=== PATIENT | male | born 1940 | race Caucasian/White ===

== ENCOUNTER 2018-05-12 13:44 | Inpatient (IN) | payer OTHER ==
[~2018-05-12] VITALS: Ht 180.3 cm; Wt 100.8 kg
[2018-05-12 13:45] VITALS: BP 145/92
--- NOTE | 2018-05-12 14:25 | NUR ---
PT DAUGHTER CAME OUT WONDERING HOW LONG UNTIL A DR WILL BE IN TO SEE THE PT. DAUGHTER EXPLAINED THAT PT IS IN A LOT OF PAIN AND IS VERY UNCOMFORTABLE. EXPLAINED TO DAUGHTER THAT DR WILL BE IN SOON POSSIBLE. NOTIFIED DR. SANTIZO ABOUT FAMILY'S ANXIOUSNESS TO SEE PROVIDER.
[2018-05-12 15:51] LABS: BASOPHILS 0.6 % (0.0-2.0); EOSINOPHILS 0.5 % (0.0-3.0); HEMATOCRIT 40.2 % (42.0-52.0); HEMOGLOBIN 13.4 gm/dL (14.0-18.0); LYMPHOCYTES 16.8 % (24.0-44.0); MCH 31.5 pg (26.0-34.0); MCHC 33.4 g/dL (28.0-37.0); MCV 94.4 fL (80.0-100.0); MONOCYTES 6.7 % (1.0-8.0); PLATELET COUNT 194 thou/uL (150-400); POLYS 75.4 % (36.0-66.0); RBC 4.26 mil/uL (4.50-6.00); RDW 14.4 % (10.5-14.5); WBC 9.3 thou/uL (4.0-11.0)
[2018-05-12 15:55] LABS: CALCIUM 9.5 mg/dL (8.5-10.1); CREATININE 1.2 mg/dL (0.7-1.3); POTASSIUM 4.2 mmol/L (3.5-5.1)
[2018-05-12] MEDS ORDERED: PROSCAR 5MG TABL5 MG PO (18:46)
[2018-05-12] MEDS ORDERED: GLUCOPHAGE850 MG PO (18:46)
[2018-05-12] MEDS ORDERED: ATORVASTATIN CA80 MG PO (18:46)
[2018-05-12] MEDS ORDERED: SYNTHROID50 MCG PO (18:47)
[2018-05-12] MEDS ORDERED: COZAAR 50 MG TA50 MG PO (18:47)
[2018-05-12] MEDS ORDERED: TRAMADOL 50 MG50 MG PO (18:47)
[2018-05-12] MEDS ORDERED: LOPRESSOR100 M1 PO (18:47)
[2018-05-12] MEDS ORDERED: GABAPENTIN600 M1 PO (18:48)
[2018-05-12] MEDS ORDERED: ECOTRIN325 MG PO (18:49)
[2018-05-12] MEDS ORDERED: VITAMIN C WIT1000 MG PO (18:50)
[2018-05-12] MEDS ORDERED: HYDROCODON-ACE1 EAC7 PO (18:51)
[2018-05-12 19:27] VITALS: BP 132/74
--- NOTE | 2018-05-12 19:34 | NUR ---
CALLED PT'S FAMILY MEMBER, OLVIN- TO GIVE ROOM NUMBER- [phone]
[2018-05-12 19:36] VITALS: BP 121/64
[2018-05-12 20:22] VITALS: BP 132/73
[2018-05-13] MEDS ORDERED: BISACODYL SUPP10 MG RECTAL (00:34)
[2018-05-13] MEDS ORDERED: COLACE100 MG PO (00:35)
[2018-05-13] MEDS ORDERED: TYLENOL EXTRA500 MG PO (00:35)
[2018-05-13] MEDS ORDERED: ROBITUSSIN100 MG/53 (00:37)
[2018-05-13] MEDS ORDERED: SELSUN BLUE207 M2 TOP (00:39)
[2018-05-13 04:45] VITALS: BP 154/86
[2018-05-13 06:07] LABS: HEMATOCRIT 37.4 % (42.0-52.0); HEMOGLOBIN 12.4 gm/dL (14.0-18.0); MCH 31.5 pg (26.0-34.0); MCHC 33.1 g/dL (28.0-37.0); RBC 3.94 mil/uL (4.50-6.00); RDW 14.6 % (10.5-14.5); WBC 5.9 thou/uL (4.0-11.0)
[2018-05-13 06:18] LABS: CALCIUM 8.7 mg/dL (8.5-10.1); CREATININE 1.2 mg/dL (0.7-1.3)
[2018-05-13] MEDS ORDERED: WELLBUTRIN SR150 MG PO (07:31)
[2018-05-13] MEDS ORDERED: WELLBUTRIN XL150 MG PO (07:32)
--- NOTE | 2018-05-13 07:41 | NUR ---
ADMITTED FROM ER, TRANSPORTED VIA CART. STEADY GAIT, UP AD JENA IN ROOM. ENCOURAGING AMBULATION TO ASSIST WITH RESOLVING ILEUS. ALERT, ORIENTED X 4. HEMATURIA DUE TO PREVIOUS KIDNEY STONE REMOVAL, STENT PLACEMENT. DENIED NEED FOR NAUSEA, PAIN MEDS.
[2018-05-13 08:36] VITALS: BP 166/85
--- NOTE | 2018-05-13 10:29 | NUR ---
Nutrition: assess d/t consult for weight loss. Pt admitted for ileus and abdominal pain. Hx of kidney stones, DM, and HTN. Pt states over the past several months he has lost ~25 lbs. This was desired wt loss. Pt states he is very happy with progess and would like to lose a little more. Currently on clear liquid diet, tolerating well. Has been passing gas, but no BM. Will follow for timely diet advancement. Otherwise, consider low risk.
--- NOTE | 2018-05-13 13:08 | NUR ---
Assessment completed.vss.pt in bed alert and oriented x4.Ambulated in hallways with therapist.Good endurance noted.Dr Wihte here,order noted.Pt kept npo till passing gas and have bm.No verbal c/o at present.Will continue to monitor.
--- NOTE | 2018-05-13 16:08 | NUR ---
ASSESSMENT-PT LIVES AT HOME WITH HIS DTR AND JEFFREY. PT IS INDEPENDENT OF ADLS AND AMBULATION. PT DRIVES AND HAS NOT HAD ANY HH SERVICES. JEFFREY DOES THE COOKING AND EACH PERSON DOES THEIR OWN LAUNDRY. PT DOES HIS OWN CLEANING. DTR AND JEFFREY STAY IN THE LOWER LEVEL. PT VOICES NO DC NEEDS AT THIS TIME. FOLLOWING TO ASSIST NEEDED.
[2018-05-13 17:23] VITALS: BP 149/75
[2018-05-13 20:59] VITALS: BP 143/84
--- NOTE | 2018-05-14 05:42 | NUR ---
PATIENTS CARES WERE ASSUMED ABOUT 2029 AFTER A TRANSFER FROM [facility]. PATIENT WAS ASSESSED AND FOUND TO BE IN GOOD CONDITION. DENIES ANY PAIN OR NAUSEA. PATIENT MANY C/O DISCOMFOR WAS HE NEEDED TO HAVE A LARGE BM AND FELT ALOT OF PRESSURE IN HIS ABDOMIN AREA. GAVE PATIENT 2 PRUN JUICES AND WARMED THEM BEFORE BED. PATIENT UP AND HAD TWO BMS, SMALL. GAVE PATIENT A HOT CUP OF COFFEE AND THIRTY MINUTES LATER HE HAD TWO MORE BM. PATIENT DID HAVE ABOUT FOUR HOURS OF RESTFUL SLEEP. HOURLY ROUNDING WAS DONE. PATIENTS IS INDEPENDENT IN HIS ROOM. THE BED IS IN A LOW AND LOCKED POSITION.
--- NOTE | 2018-05-14 08:13 | NUR ---
ASSUMED CARE OF PT APPROX 0715, A&0X4, AMB STEADY, VS TAKEN, BG CHECKED, REPORTS OF SEVERAL BM'S THROUGH OUT THE NIGHT D/T PRUNE JUICE AND COFFEE AND PT DIDN'T GET TO SLEEP UNTIL 0600, PER PT'S REPORT. HE REPORTS FEELING ALMOST NORMAL NOW. IVF RUNNING, SEE INTERVENTION FOR ASSESSMENT, NO PAIN FROM [facility] STENT PLACED PRIOR TO THIS ADMISSION. PT ENCOURAGED TO USE CALL LIGHT FOR ANY NEEDS. HIS GOAL IS TO BE DISCHARGED TODAY
[2018-05-14 08:27] LABS: FOLIC ACID 30.6 ng/mL (8.6-58.9)
[2018-05-14 08:30] VITALS: BP 126/71
[2018-05-14] MEDS ORDERED: TRAMADOL 50 MG50 MG PO (09:41)
[2018-05-14] MEDS ORDERED: SENOKOT-S1 TA2 PO (09:42)
[2018-05-14 10:55] VITALS: BP 126/71
--- NOTE | 2018-05-14 11:58 | NUR ---
PT D/C'D WITH TWO RX, AND FAMILY, ACCOMPANIED IN W/C WITH VOLUNTEER. IV REMOVED AND ALL BELONGINGS W/PT, HE LEFT IN GOOD SPIRITS
--- NOTE | 2018-05-14 16:15 | NUR ---
DISCHARGE NOTE: SW reviewed chart and spoke with nursing and attending physician. Pt was transferred to [facility] from and is medically stable for discharge home today. Pt's family provided transportation home. No SW needs identified, but is available to assist should needs arise.
== END 2018-05-14 12:25 | disposition home or self-care (01) | DRG 390 ==
LOC: ER 13:44 → EROBS 17:40 → 4E 17:40 → SICU 05-13 20:28 → ENTRNSPT 05-14 11:45 → EDTRNSPTSTS 05-14 11:49 → SICU 05-14 12:25
PROVIDERS: Emergency Medicine; ADMIT Internal Medicine
DX: K56.7 Ileus, unspecified (principal); K59.00 Constipation, unspecified; I10 Essential (primary) hypertension; E11.40 Type 2 diabetes mellitus with diabetic neuropathy, unspecified; I25.10 Atherosclerotic heart disease of native coronary artery without angina pectoris; T40.605A Adverse effect of unspecified narcotics, initial encounter; K46.9 Unspecified abdominal hernia without obstruction or gangrene; E53.8 Deficiency of other specified B group vitamins; N40.0 Benign prostatic hyperplasia without lower urinary tract symptoms; Z95.1 Presence of aortocoronary bypass graft; Z88.0 Allergy status to penicillin; Z88.2 Allergy status to sulfonamides; Z88.8 Allergy status to other drugs, medicaments and biological substances; Z87.891 Personal history of nicotine dependence; Z79.899 Other long term (current) drug therapy
CPT/HCPCS: 10183; 10783; 15002